=== PATIENT | male | born 1960 | race Two or more races ===

== ENCOUNTER 2016-11-23 13:28 | Emergency (ER) | payer SELFPAY ==
[~2016-11-23] VITALS: Ht 157.5 cm; Wt 65.8 kg
[~2016-11-23 13:28] MED LIST: UNOBMED
[2016-11-23 13:29] VITALS: BP 100/68
--- NOTE | 2016-11-23 14:35 | Emergency Room Report ---
History of Present Illness General Chief Complaint: Alcohol Intoxication Source: Patient, EMS Present Illness HPI The patient is a 55-year-old male who is well-known to this emergency Department presenting for alcohol intoxication once again. The patient does not provide any information Allergies: Coded Allergies: No Known Allergies (Unverified , 12/11/14) UNABLE TO ASSESS (Unverified , 12/11/14) Patient History Past Medical History: see triage record Pertinent Family History: none Reviewed Nursing Documentation: PMH: Agreed, PSxH: Agreed Nursing Documentation-PMH Past Medical History: No History, Except For History Of Psychiatric Problem: Yes - etoh abuse Review of Systems All Other Systems: negative except mentioned in HPI Physical Exam Vital Signs Date Time Temp Pulse Resp B/P Pulse Ox O2 Delivery O2 Flow Rate FiO2 11/23/16 13:17 96.8 97 20 100/68 95 Room Air Sp02 EP Interpretation: reviewed, normal General Appearance: no apparent distress, alert, GCS 15, non-toxic, lethargic Head: normocephalic, atraumatic Eyes: bilateral eye PERRL, bilateral eye normal inspection ENT: hearing grossly normal, normal pharynx, no angioedema, normal voice Neck: full range of motion, supple/symm/no masses Respiratory: chest non-tender, lungs clear, normal breath sounds, no rhonchi, no respiratory distress, no accessory muscle use, no wheezing, speaking full sentences Cardiovascular #1: regular rate, rhythm, no edema Gastrointestinal: normal bowel sounds, non tender, soft, non-distended, no guarding, no rebound Musculoskeletal: back normal, gait/station normal, normal range of motion, non- tender Neurologic: alert, responsive, motor strength/tone normal, sensory intact, speech normal Psychiatric: judgement/insight normal, memory normal, mood/affect normal, no suicidal/homicidal ideation Skin: normal color, no rash, warm/dry, well hydrated Lymphatic: no adenopathy Medical Decision Making PA Attestation Dr. Aranda is my supervising physician. Patient management was discussed with my supervising physician Diagnostic Impression: Primary Impression: Acute alcoholic intoxication Qualified Codes: F10.120 - Alcohol abuse with intoxication, uncomplicated ER Course The patient is a 55-year-old male presenting for alcohol intoxication DDx considered but not limited to: acute alcohol intoxication, hepatic encephalopathy, drug overdose, hypoglycemia, psychosis Physical exam: Vitals within normal limits. No apparent distress. Head is normocephalic atraumatic. Lungs clear to auscultation bilaterally. Abdomen is soft and nontender. The patient awakes to verbal and physical stimuli. Skin is warm and dry. The patient is given time to rest in the emergency department. Pt asking for food. The patient will be discharged home when he is able to ambulate well and when he is alert and oriented. The patient is given information regarding alcohol abuse Last Vital Signs Date Time Temp Pulse Resp B/P Pulse Ox O2 Delivery O2 Flow Rate FiO2 11/23/16 13:29 97.3 20 100/68 96 Room Air 11/23/16 13:17 97 Status: improved Disposition: HOME, SELF-CARE Condition: Improved Referrals: NOT CHOSEN IPA/,REFERRING (PCP) ROXANNE ECHEVERRIA Nov 23, 2016 14:35
[2016-11-23 15:47] VITALS: BP 120/69
[2016-11-23 16:43] VITALS: BP 126/64
== END 2016-11-23 16:57 | disposition home or self-care (01) ==
LOC: EDBD 13:28 → EMR 13:35 → EDUNIT# 13:35 → EMR 16:57
DX: F10.120 Alcohol abuse with intoxication, uncomplicated (principal)
CPT/HCPCS: 99282

== ENCOUNTER 2016-12-21 15:12 | Emergency (ER) | payer SELFPAY ==
[~2016-12-21] VITALS: Ht 162.6 cm; Wt 59.0 kg
[2016-12-21 15:59] VITALS: BP 132/93
--- NOTE | 2016-12-21 16:17 | Diagnostic Imaging Report ---
Indications: Altered mental status Technique: Spiral acquisitions obtained through the brain. Angled axial and coronal 5 x 5 mm slices were reconstructed. Total dose length product 1485 mGycm. CTDI vol(s) 70 mGy Comparison: 04/28/2016 Findings: Area of encephalomalacia in the posterior right parietal lobe is again demonstrated. There is age-related enlargement of the ventricles and extra axial CSF spaces again demonstrated. No acute hemorrhage or edema. No mass effect nor midline shift. Normal boyce-white differentiation. Visualized are unremarkable. There is left maxillary and bilateral ethmoid sinus disease. The calvarium is intact. Impression: Age-related changes Old right parietal infarct, also previously described Negative for acute intracranial bleed or mass effect The CT scanner at [facility] is accredited by the [employer] and the scans are performed using protocols designed to limit radiation exposure to as low as reasonably achievable to attain images of sufficient resolution adequate for diagnostic evaluation.
[2016-12-21 19:53] VITALS: BP 128/89
[2016-12-21 22:27] VITALS: BP 132/84
--- NOTE | 2016-12-21 22:31 | Emergency Room Report ---
History of Present Illness General Chief Complaint: Altered Mental Status Source: Patient, EMS (LEILA COOK D.O.) Present Illness HPI Patient was brought in by paramedics Found laying on the street and called by bystanders Patient here appears to be inebriated however the presentation is somewhat unclear Patient is nonverbal but does limit the history of present illness There was no reports of any blood at the scene or other obvious trauma Patient has presented here previously with alcohol intoxication (LEILA COOK D.O.) Allergies: Coded Allergies: No Known Allergies (Unverified , 06/03/16) UNABLE TO ASSESS (Unverified , 04/03/16) Patient History Limited by: medical condition Pertinent Family History: unable to obtain Reviewed Nursing Documentation: PMH: Agreed, PSxH: Agreed (LEILA COOK D.O.) Nursing Documentation-PMH Past Medical History Deferred: Patient Unconscious Past Medical History: Deferred Hx Seizures: Yes (LEILA COOK D.O.) Review of Systems All Other Systems: limited - Other than the ones mentioned in the history of present illness all others are reviewed however they do stay limited due to the patient's mental status (LEILA COOK D.O.) Physical Exam Vital Signs Date Time Temp Pulse Resp B/P Pulse Ox O2 Delivery O2 Flow Rate FiO2 12/21/16 15:04 97.9 67 12 128/90 99 Room Air Sp02 EP Interpretation: reviewed, normal General Appearance: no apparent distress Head: other - Abrasions to the forehead Eyes: bilateral eye PERRL ENT: normal pharynx, no angioedema Neck: full range of motion, supple Respiratory: lungs clear, normal breath sounds Cardiovascular #1: regular rate, rhythm Gastrointestinal: non tender, soft Musculoskeletal: other - Patient does not follow commands however, no obvious focal deficit and does respond to physical stimuli, Neurologic: responsive - To physical stimuli Skin: other - Patient appears disheveled had abrasions to the forehead, Lymphatic: no adenopathy (LEILA COOK D.O.) Medical Decision Making Diagnostic Impression: Primary Impression: Acute alcoholic intoxication Qualified Codes: F10.120 - Alcohol abuse with intoxication, uncomplicated Additional Impression: Head injury, acute Qualified Codes: S09.90XA - Unspecified injury of head, initial encounter ER Course Given the patient's altered mental status and evidence of head injuries CAT scan was obtained This was read as negative by radiology patient was allowed to rest requires repeat evaluation and further sobering (LEILA COOK D.O.) ER Course Patient signed out to me. The low noted his ER. His been to multiple time for alcohol intoxication. He slept for several hours. We'll discharge home now. He walked to the bathroom without difficulty. (GABY GARCIA M.D.) Last Vital Signs Date Time Temp Pulse Resp B/P Pulse Ox O2 Delivery O2 Flow Rate FiO2 12/21/16 19:53 97.9 72 15 128/89 98 Room Air Status: improved (LEILA COOK D.O.) Status: improved (GABY GARCIA M.D.) Disposition: HOME, SELF-CARE Condition: Stable Referrals: NOT CHOSEN IPA/,REFERRING (PCP) Additional Instructions: Followup with your DrGoyo in 7 days. Abstain from alcohol. But we have. Return worse. LEILA COOK D.O. Dec 21, 2016 22:31 GABY GARCIA M.D. Dec 21, 2016 23:19
[2016-12-22 01:00] VITALS: BP 130/83
[2016-12-22 03:10] VITALS: BP 128/85
[2016-12-22 05:35] VITALS: BP 125/86
== END 2016-12-22 05:35 | disposition home or self-care (01) ==
LOC: EDBD 15:12 → EMR 15:56
DX: F10.120 Alcohol abuse with intoxication, uncomplicated (principal); S09.90XA Unspecified injury of head, initial encounter; X58.XXXA Exposure to other specified factors, initial encounter; Y92.9 Unspecified place or not applicable; Y99.8 Other external cause status
CPT/HCPCS: 70450; 99284

== ENCOUNTER 2016-12-31 20:30 | Emergency (ER) | payer SELFPAY ==
[~2016-12-31] VITALS: Ht 165.1 cm; Wt 68.0 kg
[2016-12-31 20:38] VITALS: BP 128/88
--- NOTE | 2016-12-31 20:43 | Emergency Room Report ---
History of Present Illness General Chief Complaint: Alcohol Intoxication Source: Patient, Medical Record, EMS (Jeramie Aranda M.D.) Present Illness HPI The patient was brought in by EMS for any altered. He is able to ambulate at the scene but unsteady on his feet. The patient has a long history of alcohol abuse. He smells of alcohol to the paramedics. The patient denies suicidal or homicidal ideation. He denies any pain to me. It is very circumspect about answering questions. The patient has some scrapes on his forehead and nose. He states this happened several days ago. (Jeramie Aranda M.D.) Allergies: Coded Allergies: No Known Allergies (Unverified , 06/03/16) UNABLE TO ASSESS (Unverified , 04/03/16) Patient History Limited by: medical condition Past Medical History: see triage record Social History: Reports: alcohol use Social History Narrative streets Reviewed Nursing Documentation: PMH: Agreed, PSxH: Agreed (Jeramie Aranda M.D.) Nursing Documentation-PM Past Medical History: No History, Except For Hx Seizures: Yes (Jeramie Aranda M.D.) Review of Systems All Other Systems: limited (Jeramie Aranda M.D.) Physical Exam Vital Signs Date Time Temp Pulse Resp B/P Pulse Ox O2 Delivery O2 Flow Rate FiO2 12/31/16 20:31 98.1 80 18 128/88 99 Room Air Sp02 EP Interpretation: reviewed, normal General Appearance: well appearing, no apparent distress, GCS 15 Head: normocephalic, other - abrasion nose and R forehead Eyes: bilateral eye PERRL, bilateral eye Scleral Injection, bilateral eye abnormal EOM - nystagmus ENT: moist mucus membranes Neck: supple, no bony tend Respiratory: chest non-tender, lungs clear, normal breath sounds Cardiovascular #1: regular rate, rhythm Cardiovascular #2: 2+ radial (R) Gastrointestinal: non tender, soft, abnormal bowel sounds - decreased Musculoskeletal: back normal, normal range of motion Neurologic: responsive, motor strength/tone normal, DTRs symmetric, sensory intact, other - ataxia slurred speech Psychiatric: other - labile Skin: other - dishevelled, abrasions (Jeramie Aranda M.D.) Medical Decision Making Diagnostic Impression: Primary Impression: Alcohol intoxication ER Course Patient presents with acute alcohol intoxication. At this point there is no focality to his neurologic exam. He does have ataxia and nystagmus. The patient will be observed and reexamined. No laboratory or imaging indicated. Patient easily roused but still slurred speech. Sign out to Dr. Garcia 23:30. (Jeramie Aranda M.D.) ER Course Patient signed out to me. He is well-known here. He's been here several time for alcohol intoxication. No new trauma. Patient sleeping comfortably. He slept through the night. We'll discharge in the morning once he is clinically sober. He has no criteria for 5150. (GABY GARCIA M.D.) Status: improved (Jeramie Aranda M.D.) Status: improved (GABY GARCIA M.D.) Disposition: HOME, SELF-CARE Condition: Stable Patient Instructions: Alcohol Intoxication, [id number] Additional Instructions: Abstain from alcohol. Followup with your DrGoyo in 2 to 3 days. Return if worse. Go to rehabilitation Jeramie Aranda M.D. Dec 31, 2016 20:43 GABY GARCIA M.D. Jan 01, 2017 02:04
[2016-12-31 22:46] VITALS: BP 120/73
[2017-01-01 01:25] VITALS: BP 118/78
[2017-01-01 04:20] VITALS: BP 124/70
[2017-01-01 05:50] VITALS: BP 121/68
[2017-01-01 05:57] VITALS: BP 121/68
== END 2017-01-01 05:58 | disposition home or self-care (01) ==
LOC: EDBD 20:30 → EMR 21:00
DX: F10.129 Alcohol abuse with intoxication, unspecified (principal)
CPT/HCPCS: 99284